=== PATIENT | female | born 1980 | race African-American/Black ===

== ENCOUNTER 2017-01-03 11:19 | Emergency (ER) | payer OTHER ==
[2017-01-03 11:23] VITALS: BMI 26.9
--- NOTE | 2017-01-03 12:35 | PDOC ---
History of Present Illness - General History Source: Patient Exam Limitations: No Limitations - History of Present Illness Initial Comments: 01/03/17 13:49 The patient is a 36 year old female with a significant PMH of anemia who presents to the emergency department with chest pain beginning approximately yesterday. The patient describes the chest pain to be continuous and localized in the midsternal area. She notes associated shortness of breath and nausea with her symptoms. The patient also reports palpitations and lightheadedness which she has also felt in the past. She notes moving and breathing aggravate her chest pain. The patient reports significant social stressors in her life that may be leading to her symptoms. She believes her symptoms to be panic attacks, but has never been diagnosed with an anxiety disorder. The patient denies history of blood clots or DVTs. The patient denies hair loss, weight gain, or weight loss. Denies any trauma or headaches. Denies family history of [place]. Denies fever, chills, vomit, diarrhea and constipation. Denies dysuria, frequency, urgency and hematuria. Allergies: NKDA Past surgical history: None reported. Social history: No reported cigarette, alcohol, or drug use. <Darinel Hill - Last Filed: 01/03/17 13:49> <Elmira Tapia - Last Filed: 01/03/17 14:34> - General Chief Complaint: Chest Pain Stated Complaint: PALPITATIONS Past History <Darinel Hill - Last Filed: 01/03/17 13:49> - Past Medical History Anemia: Yes Asthma: No Cancer: No Cardiac Disorders: No COPD: No Dementia: No Diabetes: No GI Disorders: Yes Disorders: No HTN: No Hypercholesterolemia: Yes Liver Disease: No Seizures: No Thyroid Disease: No - Surgical History Abdominal Surgery: No Appendectomy: No Cardiac Surgery: No Cholecystectomy: No Lung Surgery: No Neurologic Surgery: No Orthopedic Surgery: No - Suicide/Smoking/Psychosocial Hx Smoking Status: No Smoking History: Never smoked Have you smoked in the past 12 months: No Number of Cigarettes Smoked Daily: 0 Hx Alcohol Use: No Drug/Substance Use Hx: No Substance Use Type: None Hx Substance Use Treatment: No <Elmira Tapia - Last Filed: 01/03/17 14:34> - Past Medical History Allergies/Adverse Reactions: Allergies Allergy/AdvReac Type Severity Reaction Status Date / Time lactose Allergy Verified 01/03/17 11:23 No Known Drug Allergies Allergy Verified 01/03/17 11:23 fruit AdvReac Itching Uncoded 01/03/17 11:23 Home Medications: Ambulatory Orders Pnv95/Ferrous Fumarate/FA [ Tablet] 1 tab PO DAILY 07/17/12 Cholecalciferol (Vitamin D3) [Vitamin D] 1,000 unit PO DAILY 07/13/15 Cyanocobalamin [Vitamin B12 -] 1 tab PO WEEKLY 07/13/15 Ranitidine [Zantac -] 150 mg PO BID #0 tablet 07/16/15 Review of Systems - Review of Systems Able to Perform ROS?: Yes Comments:: 01/03/17 13:49 GENERAL/CONSTITUTIONAL: No fever or chills. No weakness. HEAD, EYES, EARS, NOSE AND THROAT: No change in vision. No ear pain or discharge. No sore throat. CARDIOVASCULAR: (+) Midsternal chest pain. (+) Shortness of breath. (+) Palpitations. RESPIRATORY: No cough, wheezing, or hemoptysis. GASTROINTESTINAL: (+) Nausea. No vomiting, diarrhea or constipation. GENITOURINARY: No dysuria, frequency, or change in urination. MUSCULOSKELETAL: No joint or muscle swelling or pain. No neck or back pain. SKIN: No rash NEUROLOGIC: (+) Lightheadedness. No headache, vertigo, loss of consciousness, or change in strength. ENDOCRINE: No increased thirst. No abnormal weight change. HEMATOLOGIC/LYMPHATIC: No anemia, easy bleeding, or history of blood clots. ALLERGIC/IMMUNOLOGIC: No hives or skin allergy. <Darinel Hill - Last Filed: 01/03/17 13:49> *Physical Exam - Vital Signs Last Vital Signs Temp Pulse Resp BP Pulse Ox 98.4 F 85 20 109/72 100 01/03/17 11:21 01/03/17 11:21 01/03/17 11:21 01/03/17 11:21 01/03/17 11:21 - Physical Exam Comments: 01/03/17 13:49 GENERAL: Awake, alert, and fully oriented, in no acute distress HEAD: No signs of trauma EYES: PERRLA, EOMI, sclera anicteric, conjunctiva clear ENT: Auricles normal inspection, hearing grossly normal, nares patent, oropharynx clear without exudates. Moist mucosa NECK: Normal ROM, supple, no lymphadenopathy, JVD, or masses LUNGS: Breath sounds equal, clear to auscultation bilaterally. No wheezes, and no crackles HEART: Regular rate and rhythm, normal S1 and S2, no murmurs, rubs or gallops ABDOMEN: Soft, nontender, normoactive bowel sounds. No guarding, no rebound. No masses EXTREMITIES: Normal range of motion, no edema. No clubbing or cyanosis. No cords, erythema, or tenderness. DP/PT pulses 2+ and symmetric. NEUROLOGICAL: Cranial nerves II through XII grossly intact. Normal speech, normal gait SKIN: Warm, Dry, normal turgor, no rashes or lesions noted. <Darinel Hill - Last Filed: 01/03/17 13:49> - Vital Signs Last Vital Signs Temp Pulse Resp BP Pulse Ox 98.4 F 85 20 109/72 100 01/03/17 11:21 01/03/17 11:21 01/03/17 11:21 01/03/17 11:21 01/03/17 11:21 <Elmira Tapia - Last Filed: 01/03/17 14:34> Heart Score/ECG Review #1 General ECG Interpretation: Sinus Rhythm, Normal Rate (75), Normal Intervals, No acute ischemic changes <Elmira Tapia - Last Filed: 01/03/17 14:34> ED Treatment Course - LABORATORY CBC & Chemistry Diagram: 01/03/17 12:56 01/03/17 12:56 - ADDITIONAL ORDERS Additional order review: Laboratory Results 01/03/17 12:56 Urine HCG, Qual Negative 01/03/17 12:56 RBC 4.87 MCV 75.3 L MCHC 32.0 RDW 15.3 D MPV 9.0 Neutrophils % 56.2 Lymphocytes % 33.5 Monocytes % 7.6 Eosinophils % 1.9 Basophils % 0.8 <Darinel Hill - Last Filed: 01/03/17 13:49> - LABORATORY CBC & Chemistry Diagram: 01/03/17 12:56 01/03/17 12:56 - RADIOLOGY Radiology Studies Ordered: Category Date Time Status CHEST PA & LAT [RAD] Stat Radiology 01/03/17 12:33 Ordered <Elmira Tapia - Last Filed: 01/03/17 14:34> Medical Decision Making - Medical Decision Making 01/03/17 12:34 36 yo F with /co chest pain palpitations differential anemia, electrolyte abnormality, hyper or hypothyroid. anxiety reaction. plan ekg labs cxr ekg. reassess. 01/03/17 13:47 01/03/17 14:29 LABS UNREMARKABLE. EKG NORMAL CXR NORMAL. PT TOLD TO FOLLOW UP PCP. <Elmira Tapia - Last Filed: 01/03/17 14:34> *DC/Admit/Observation/Transfer - Attestations Scribe Attestion: 01/03/17 13:49 Documentation prepared by Darinel Hill, acting as manager medical device for Elmira Tapia MD. <Darinel Hill - Last Filed: 01/03/17 13:49> - Discharge Dispostion Admit: No <Elmira Tapia - Last Filed: 01/03/17 14:34> Diagnosis at time of Disposition: Palpitations - Discharge Dispostion Disposition: HOME Condition at time of disposition: Improved - Referrals Referrals: Albaro Hill MD [Staff Physician] - Alexis White MD [Staff Physician] - - Patient Instructions Printed Discharge Instructions: DI for Atypical Chest Pain, DI for Palpitations , Anxiety and Panic Attacks (Alternative Therapy) Additional Instructions: YOU CAN FOLLOW UP WITH YOUR PRIMARY DOCTOR. CALL TO SCHEDULE. YOU CAN ALSO SCHEDULE AN APPOINTMENT FOR dr Lindsay , OUR PSYCHIATRIST TO DISCUSS YOUR ANXIETY. YOU SHOULD ALSO FOLLOW UP WITH A CARDIOLOGY SEE REFERRAL INFORMATION FOR DR. HILL.
[2017-01-03 13:13] LABS: BASOPHIL 0.8 % (0-2.0); EOSINOPHIL 1.9 % (0-4.5); MCH 24.1 pg (25.7-33.7); MEAN CELL VOLUME 75.3 fl (80-96); NEUTROPHILS 56.2 % (42.8-82.8); PLATELET COUNT 221 K/MM3 (134-434); RDW 15.3 % (11.6-15.6); WHITE BLOOD COUNT 6.2 K/mm3 (4.0-10.0)
[2017-01-03 13:41] LABS: ALBUMIN 3.6 g/dl (3.4-5.0); ANION GAP 3 (8-16); CALCIUM 8.7 mg/dL (8.5-10.1); CO2 31 mmol/L (21-32); CREATININE 0.7 mg/dL (0.55-1.02); GLUCOSE,RANDOM 87 mg/dL (74-106); SGOT/AST 15 U/L (15-37); SGPT/ALT 21 U/L (12-78)
[2017-01-03 13:50] LABS: ALK PHOS 34 U/L (45-117); BILIRUBIN,TOTAL 0.4 mg/dL (0.2-1.0); CPK 194 IU/L (26-192); TOT PROT 6.9 g/dl (6.4-8.2); TROPONIN I < 0.02 ng/ml (0.00-0.05)
[2017-01-03 14:38] VITALS: BP 110/76; PULSE 80; TEMP 98.1
--- NOTE | 2017-01-04 10:59 | EKG ---
Test Reason : Blood Pressure : / mmHG Vent. Rate : 075 BPM Atrial Rate : 075 BPM P-R Int : 190 ms QRS Dur : 084 ms QT Int : 352 ms P-R-T Axes : 059 058 046 degrees QTc Int : 393 ms NORMAL SINUS RHYTHM NORMAL ECG NO PREVIOUS ECGS AVAILABLE Confirmed by BREE GALLEGOS, KEM ([id number] on 01/04/2017 10:58:57 AM Referred By: Confirmed By:KEM GIRON MD
== END 2017-01-03 14:55 | disposition home or self-care (01) ==
LOC: JER 11:19
DX: R00.2 Palpitations (principal); F41.9 Anxiety disorder, unspecified
CPT/HCPCS: 36415; 71020-TC; 80053; 82550; 82553; 84443; 84484; 84703; 85025; 93005; 93010; 99283-25